=== PATIENT | female | born 1985 | race Caucasian/White ===

== ENCOUNTER 2019-12-05 01:19 | Inpatient (IN) ==
[2019-12-05] MEDS ORDERED: Naloxone 0.4 MG/ML INJ IVP PRN ×2 (04:20→05:43)
[2019-12-05] MEDS ORDERED: Ondansetron ODT 4 MG TAB.RAPDIS SL PRN (04:20)
[2019-12-05] MEDS ORDERED: Perflutren Lipid Microsphere 1.3 ML in 0.9 % Sodium Chloride 8.7 ML IVP PRN (04:28)
[2019-12-05] MEDS ORDERED: Acetaminophen IV 1,000 MG/100 ML INFUS..BTL IVPB ONE (04:28)
[2019-12-05] MEDS ORDERED: 0.9 % Sodium Chloride 1,000 ML IVC ONE (04:30)
[2019-12-05] MEDS ORDERED: 0.9 % Sodium Chloride 1,000 ML ONE (04:31)
[2019-12-05] MEDS ORDERED: *HR* Norepinephrine 4 MG/4 ML VIAL IVC ONE (04:52)
[2019-12-05] MEDS ORDERED: 0.9 % Sodium Chloride 250 ML ONE (04:52)
[2019-12-05] MEDS ORDERED: Potassium Chloride 40 MEQ, Lidocaine 1% 2 ML in 0.9 % Sodium Chloride 500 ML IVPB ONE (05:00)
[2019-12-05] MEDS ORDERED: Norepinephrine 4 MG/254 ML IV.SOLN IVC SCH (05:00)
[2019-12-05 05:10] LABS: Adenovirus Not Detected (Not Detect); Coronavirus 229E Not Detected (Not Detect); Coronavirus HKU1 Not Detected (Not Detect); Coronavirus NL63 Not Detected (Not Detect); Coronavirus OC43 Not Detected (Not Detect)
[2019-12-05 05:11] LABS: Bordetella Pertussis Not Detected (Not Detect); Chlamydophila pneumoniae Not Detected (Not Detect); Human Metapneumovirus Not Detected (Not Detect); Human Rhinovirus/Enterovirus Not Detected (Not Detect); Influenza A Subtype 2009 H1 Not Detected (Not Detect); Influenza B Not Detected (Not Detect); Mycoplasma pneumoniae Not Detected (Not Detect); Parainfluenza Virus 1 Not Detected (Not Detect); Parainfluenza Virus 2 Not Detected (Not Detect); Parainfluenza Virus 3 Not Detected (Not Detect); Parainfluenza Virus 4 Not Detected (Not Detect); Respiratory Syncytial Virus Not Detected (Not Detect)
[2019-12-05] MEDS: Ketorolac 15 MG/ML VIAL IVP PRN ×2 (05:39→12:09)
[2019-12-05 05:56] LABS: Mean Corpuscular Hemoglobin 22.3 pg (28.0-33.3); Mean Corpuscular Volume 71.6 fL (83.0-100.0)
[2019-12-05 05:57] LABS: Hemoglobin 8.7 g/dL (11.5-15.4); Immature Platelets 10.3 % (1.1-6.1); Mean Corpuscular HGB Conc 31.1 g/dL (31.6-35.5); Mean Platelet Volume 11.8 fL (9.4-12.4); Monocytes # 1.1 K/mcL (0.0-1.3); Platelet Count 108 K/mcL (140-400); Red Blood Count 3.91 M/mcL (3.82-4.97); White Blood Count 11.2 K/mcL (4.3-11.1)
[2019-12-05] MEDS: Morphine Sulfate 2 MG/ML SYRINGE IVP PRN ×2 (06:00→11:32)
[2019-12-05] MEDS ORDERED: *HR* Enoxaparin 40 MG/0.4 ML SYRINGE SQ SCH (06:00)
[2019-12-05] MEDS: 0.9 % Sodium Chloride 1,000 ML IVC SCH ×2 (06:00→11:32)
[2019-12-05 06:14] LABS: Alanine Aminotransferase 15 Units/L (7-52); Albumin 2.4 g/dL (3.5-5.7); Albumin/Globulin Ratio 0.8 (1.1-2.2); Alkaline Phosphatase 114 Units/L (34-104); Aspartate Amino Transferase 19 Units/L (13-39); BUN/Creatinine Ratio 24 (6-26); Bilirubin,Total 1.2 mg/dL (0.3-1.0); Blood Urea Nitrogen 17 mg/dL (6-20); Calcium 7.1 mg/dL (8.6-10.3); Carbon Dioxide 26 mEq/L (23-29); Chloride 103 mEq/L (98-107); Glucose 118 mg/dL (70-105); Osmolality,Calculated 281 (280-300); Potassium 2.9 mEq/L (3.5-5.1); Sodium 134 mEq/L (136-145); Total Protein 5.4 g/dL (6.4-8.9); eGFR For African Americans > 60 (> 60); eGFR For Non-African Americans > 60 (> 60)
[2019-12-05] MEDS ORDERED: *HR* LORazepam 2 MG/ML VIAL IVP PRN (06:30)
[2019-12-05 06:35] LABS: Lymphocytes # 0.9 K/mcL (0.6-4.6); Neutrophils # 9.2 K/mcL (1.6-8.9)
[2019-12-05 06:37] LABS: Anisocytosis 1+ (Not Present); Microcytosis Present (Not Present); Platelet Estimate Decreased (Normal)
[2019-12-05] MEDS ORDERED: Piperacillin/Tazobactam 3.375 GM in 0.9 % Sodium Chloride Mini Bag 100 ML IVPB SCH (08:00)
[2019-12-05] MEDS ORDERED: Dexmedetomidine HCl 400 MCG/100 ML MLS IVC SCH (12:00)
[2019-12-05] MEDS ORDERED: *HR* OxyCODONE Immed Rel 5 MG TABLET PO PRN (12:48)
[2019-12-05] MEDS ORDERED: Doxycycline 100 MG CAPSULE PO SCH (13:00)
[2019-12-05 13:09] VITALS: BP 110/64
[2019-12-05] MEDS ORDERED: Doxycycline 100 MG in 0.9 % Sodium Chloride Mini Bag 100 ML IVPB SCH (18:00)
[2019-12-06] MEDS ORDERED: Vancomycin 1,250 MG/262.5 ML IV.SOLN IVPB SCH (01:00)
== END 2019-12-05 15:30 | disposition left against medical advice (07) | DRG 720 ==
LOC: CDU → ICNU 05:15
PROVIDERS: ADMIT Internal Medicine; ATTEND Internal Medicine

== ENCOUNTER 2020-01-04 13:28 | Inpatient (IN) ==
[2020-01-04] MEDS ORDERED: 0.9 % Sodium Chloride 1,000 ML IVC ONE (13:52)
[2020-01-04] MEDS ORDERED: Isovue-370 500 ML BOTTLE IVP ONE (13:53)
[2020-01-04] MEDS ORDERED: Vancomycin 1,500 MG/265 ML IV.SOLN IVPB ONE (13:53)
[2020-01-04] MEDS ORDERED: Piperacillin/Tazobactam 3.375 GM in 0.9 % Sodium Chloride Mini Bag 100 ML IVPB ONE (13:53)
[2020-01-04] MEDS ORDERED: Piperacillin/Tazobactam 3.375 GM in Water for inj. (sterile) 20 ML IVP ONE (14:00)
[2020-01-04 14:35] LABS: Basophils % 0.5 %; Eosinophils # 0.2 K/mcL (0.0-0.6); Eosinophils % 2.6 %; Hematocrit 31.6 % (35.3-44.9); Hemoglobin 9.5 g/dL (11.5-15.4); Immature Granulocytes % 0.4 % (0-4); Lymphocytes # 1.9 K/mcL (0.6-4.6); Lymphocytes % 24.8 %; Mean Corpuscular HGB Conc 30.1 g/dL (31.6-35.5); Mean Corpuscular Hemoglobin 24.1 pg (28.0-33.3); Mean Platelet Volume 9.9 fL (9.4-12.4); Monocytes # 0.7 K/mcL (0.0-1.3); Monocytes % 9.5 %; Neutrophils # 4.8 K/mcL (1.6-8.9); Platelet Count 467 K/mcL (140-400); Red Blood Count 3.94 M/mcL (3.82-4.97); Segmented Neutrophils % 62.2 %; White Blood Count 7.8 K/mcL (4.3-11.1)
[2020-01-04 14:38] LABS: INR 1.1; Prothrombin Time 12.8 Seconds (9.4-12.1)
[2020-01-04 14:40] LABS: Mean Corpuscular Volume 80.2 fL (83.0-100.0)
[2020-01-04 15:05] LABS: Alanine Aminotransferase 20 Units/L (7-52); Albumin 3.5 g/dL (3.5-5.7); Albumin/Globulin Ratio 0.9 (1.1-2.2); Alkaline Phosphatase 163 Units/L (34-104); Aspartate Amino Transferase 27 Units/L (13-39); BUN/Creatinine Ratio 22 (6-26); Bilirubin,Direct 0.1 mg/dL (0.0-0.2); Bilirubin,Indirect 0.3 mg/dL (0.0-1.0); Bilirubin,Total 0.4 mg/dL (0.3-1.0); Blood Urea Nitrogen 13 mg/dL (6-20); Carbon Dioxide 28 mEq/L (23-29); Chloride 100 mEq/L (98-107); Glucose 101 mg/dL (70-105); Osmolality,Calculated 286 (280-300); Potassium 4.2 mEq/L (3.5-5.1); Sodium 138 mEq/L (136-145); Total Protein 7.5 g/dL (6.4-8.9); Troponin I < 0.03 ng/mL (< 0.04); eGFR For African Americans > 60 (> 60); eGFR For Non-African Americans > 60 (> 60)
[2020-01-04 16:30] LABS: Bilirubin,Urine Negative (Negative); Blood,Urine Negative (Negative); Clarity,Urine Clear (Clear); Color,Urine Light-Yellow (Yellow); Glucose,Urine (UA) Normal (Normal); Ketones,Urine Negative (Negative); Leukocyte Esterase,Urine Large (Negative); Mucus,Urine Few per lpf (None-Few); Nitrite,Urine Negative (Negative); PH,Urine 7.5 pH Units (5.0-8.0); Protein,Urine Negative (Neg-Trace); RBC,Urine 0-3 per hpf (0-3); Specific Gravity,Urine > 1.030 (1.010-1.025); Squamous Epithelial Cell,Urine Few per hpf (None-Few); Urobilinogen,Urine Normal (Normal)
[2020-01-04] MEDS ORDERED: *HR* Heparin 5,000 UNIT/ML VIAL IVP PRN ×2 (18:03)
[2020-01-04] MEDS ORDERED: *HR* Heparin 5,000 UNIT/ML VIAL IVP ONE (18:03)
[2020-01-04] MEDS ORDERED: Ondansetron ODT 4 MG TAB.RAPDIS SL PRN (18:03)
[2020-01-04] MEDS ORDERED: Naloxone 0.4 MG/ML INJ IVP PRN (18:03)
[2020-01-04] MEDS: 0.9 % Sodium Chloride 1,000 ML IVC SCH (18:58)
[2020-01-04] MEDS: Heparin 25,000UNIT/250ML 1/2NS 25,000 UNIT/250 ML IV.SOLN IVC SCH (18:58)
[2020-01-04] MEDS ORDERED: Perflutren Lipid Microsphere 1.3 ML in 0.9 % Sodium Chloride 8.7 ML IVP PRN (20:00)
[2020-01-04 21:28] LABS: Amphetamine Screen,Urine Negative ng/mL (Cutoff=1000); Barbiturate Screen,Urine Negative ng/mL (Cutoff=200); Benzodiazepines Screen,Urine Positive ng/mL (Cutoff=200); Cannabinoid Screen,Urine Negative ng/mL (Cutoff = 50); Cocaine Screen,Urine Negative ng/mL (Cutoff= 300); Opiate Screen,Urine Negative ng/mL (Cutoff=300); Phencyclidine Screen,Urine Negative ng/mL (Cutoff=25)
[2020-01-05] MEDS: Piperacillin/Tazobactam 3.375 GM in 0.9 % Sodium Chloride Mini Bag 100 ML IVPB SCH ×4 (00:07→23:24)
[2020-01-05 01:37] LABS: Alanine Aminotransferase 23 Units/L (7-52); Albumin 3.1 g/dL (3.5-5.7); Albumin/Globulin Ratio 0.9 (1.1-2.2); Alkaline Phosphatase 183 Units/L (34-104); Aspartate Amino Transferase 30 Units/L (13-39); BUN/Creatinine Ratio 19 (6-26); Bilirubin,Total 0.4 mg/dL (0.3-1.0); Blood Urea Nitrogen 11 mg/dL (6-20); Calcium 8.3 mg/dL (8.6-10.3); Carbon Dioxide 24 mEq/L (23-29); Chloride 103 mEq/L (98-107); Globulin 3.4 g/dL (2.4-3.5); Glucose 130 mg/dL (70-105); Magnesium 1.6 mg/dL (1.6-2.6); Osmolality,Calculated 283 (280-300); Phosphorous 3.8 mg/dL (2.7-4.5); Potassium 3.6 mEq/L (3.5-5.1); Sodium 136 mEq/L (136-145); Total Protein 6.5 g/dL (6.4-8.9); eGFR For African Americans > 60 (> 60); eGFR For Non-African Americans > 60 (> 60)
[2020-01-05] MEDS: Vancomycin 1,250 MG/262.5 ML IV.SOLN IVPB SCH ×2 (02:39→14:46)
[2020-01-05] MEDS ORDERED: Morphine Sulfate 2 MG/ML SYRINGE IVP ONE (02:54)
[2020-01-05 02:57] LABS: Basophils % 0.5 %; Eosinophils # 0.2 K/mcL (0.0-0.6); Eosinophils % 3.3 %; Hematocrit 26.7 % (35.3-44.9); Immature Granulocytes % 0.5 % (0-4); Lymphocytes # 1.9 K/mcL (0.6-4.6); Lymphocytes % 31.2 %; Mean Corpuscular Hemoglobin 23.9 pg (28.0-33.3); Mean Corpuscular Volume 79.7 fL (83.0-100.0); Mean Platelet Volume 9.7 fL (9.4-12.4); Monocytes # 0.6 K/mcL (0.0-1.3); Monocytes % 10.1 %; Neutrophils # 3.3 K/mcL (1.6-8.9); Platelet Count 380 K/mcL (140-400); Red Blood Count 3.35 M/mcL (3.82-4.97); Red Cell Distribution Width 16.8 % (11.5-14.5); Segmented Neutrophils % 54.4 %
[2020-01-05] MEDS ORDERED: *HR* LORazepam 0.5 MG TABLET PO PRN (06:23)
[2020-01-05] MEDS: Heparin 25,000UNIT/250ML 1/2NS 25,000 UNIT/250 ML IV.SOLN IVC SCH (16:58)
[2020-01-05] MEDS: cloNIDine HCL 0.1 MG TABLET PO PRN (18:12)
[2020-01-05] MEDS: clonazePAM 0.5 MG TABLET PO PRN (20:11)
[2020-01-05] MEDS: 0.9 % Sodium Chloride 1,000 ML IVC SCH (21:58)
[2020-01-06 04:55] LABS: Basophils % 0.3 %; Eosinophils # 0.1 K/mcL (0.0-0.6); Eosinophils % 1.8 %; Hematocrit 27.5 % (35.3-44.9); Hemoglobin 8.2 g/dL (11.5-15.4); Immature Granulocytes % 0.1 % (0-4); Lymphocytes # 1.6 K/mcL (0.6-4.6); Lymphocytes % 23.2 %; Mean Corpuscular HGB Conc 29.8 g/dL (31.6-35.5); Mean Corpuscular Hemoglobin 23.2 pg (28.0-33.3); Mean Corpuscular Volume 77.7 fL (83.0-100.0); Monocytes # 0.5 K/mcL (0.0-1.3); Monocytes % 7.4 %; Neutrophils # 4.6 K/mcL (1.6-8.9); Platelet Count 456 K/mcL (140-400); Red Blood Count 3.54 M/mcL (3.82-4.97); Red Cell Distribution Width 16.2 % (11.5-14.5); Segmented Neutrophils % 67.2 %; White Blood Count 6.8 K/mcL (4.3-11.1)
[2020-01-06 05:08] LABS: BUN/Creatinine Ratio 11 (6-26); Blood Urea Nitrogen 7 mg/dL (6-20); Carbon Dioxide 25 mEq/L (23-29); Chloride 104 mEq/L (98-107); Glucose 116 mg/dL (70-105); Lactate Dehydrogenase 99 Units/L (140-271); Osmolality,Calculated 287 (280-300); Potassium 3.5 mEq/L (3.5-5.1); Sodium 139 mEq/L (136-145); eGFR For African Americans > 60 (> 60); eGFR For Non-African Americans > 60 (> 60)
[2020-01-06 05:46] LABS: Bilirubin,Indirect 0.5 mg/dL (0.0-1.0); Bilirubin,Total 0.5 mg/dL (0.3-1.0)
[2020-01-06] MEDS: clonazePAM 0.5 MG TABLET PO PRN (07:33)
[2020-01-06] MEDS: cloNIDine HCL 0.1 MG TABLET PO PRN (07:46)
[2020-01-06] MEDS: Piperacillin/Tazobactam 3.375 GM in 0.9 % Sodium Chloride Mini Bag 100 ML IVPB SCH (08:04)
[2020-01-06] MEDS ORDERED: *HR* LORazepam 0.5 MG TABLET PO ONE (11:39)
[2020-01-06] MEDS ORDERED: hydrOXYzine pamoate 25 MG CAPSULE PO PRN ×2 (13:25→16:08)
[2020-01-06] MEDS ORDERED: Lidocaine -MPF 2% 2 ML VIAL ONE (14:47)
[2020-01-06] MEDS ORDERED: *HR* FentaNYL (PF) 100 MCG/2 ML VIAL ONE ×2 (14:47→15:29)
[2020-01-06] MEDS ORDERED: *HR* Propofol 200 MG/20 ML VIAL IVP ONE ×2 (14:47→15:14)
[2020-01-06] MEDS ORDERED: *HR* Midazolam HCl 2 MG/2 ML VIAL ONE (14:47)
[2020-01-06] MEDS ORDERED: *HR* Rocuronium Bromide 50 MG/5 ML VIAL ONE (14:48)
[2020-01-06] MEDS ORDERED: *HR* Succinylcholine 200 MG/10 ML VIAL IVP ONE (14:49)
[2020-01-06] MEDS ORDERED: Ondansetron 4 MG/2 ML VIAL IVP PRN ×2 (15:02→16:17)
[2020-01-06] MEDS ORDERED: *HR* Meperidine 25 MG/ML SYRINGE IVP PRN (15:02)
[2020-01-06] MEDS ORDERED: *HR* OxyCODONE Immed Rel 5 MG TABLET PO PRN (15:02)
[2020-01-06] MEDS ORDERED: Dexamethasone 4 MG/ML VIAL ONE (15:40)
[2020-01-06] MEDS ORDERED: Ondansetron 4 MG/2 ML VIAL ONE (15:40)
[2020-01-06] MEDS ORDERED: *HR* HYDROMORPHONE 2 MG/ML VIAL ONE (15:45)
[2020-01-06] MEDS: *HR* HYDROmorphone PF 0.5 MG/0.5 ML SYRINGE IVP PRN ×2 (16:00→16:09)
[2020-01-06] MEDS ORDERED: Naloxone 0.4 MG/ML INJ IVP PRN (16:08)
[2020-01-06] MEDS ORDERED: cloNIDine HCL 0.1 MG TABLET PO PRN (16:08)
[2020-01-06] MEDS ORDERED: Ondansetron ODT 4 MG TAB.RAPDIS SL PRN (16:08)
[2020-01-06] MEDS ORDERED: clonazePAM 0.5 MG TABLET PO PRN (16:08)
[2020-01-06] MEDS ORDERED: Perflutren Lipid Microsphere 1.3 ML in 0.9 % Sodium Chloride 8.7 ML IVP PRN (16:08)
[2020-01-06] MEDS ORDERED: *HR* HYDROcodone/Acet 5/325 mg TABLET PO PRN (16:08)
[2020-01-06] MEDS: *HR* Promethazine 25 MG/ML VIAL IVP PRN ×2 (16:10→16:15)
[2020-01-06] MEDS ORDERED: *HR* Promethazine 25 MG/ML VIAL IVP PRN (16:17)
[2020-01-06] MEDS ORDERED: *HR* HYDROmorphone (PF) 1 MG/ML SYRINGE ONE (16:36)
[2020-01-06] MEDS: *HR* HYDROmorphone 2 MG/ML SYRINGE IVP PRN ×4 (16:37→16:55)
[2020-01-06] MEDS: *HR* Meperidine 25 MG/ML SYRINGE IVP PRN ×2 (16:44→16:59)
[2020-01-06] MEDS ORDERED: Acetaminophen IV 1,000 MG/100 ML BAG IVPB ONE (17:09)
[2020-01-06] MEDS ORDERED: *HR* HYDROmorphone (PF) 1 MG/ML SYRINGE IVP PRN (17:09)
[2020-01-06] MEDS: Ketorolac 15 MG/ML VIAL IVP SCH (17:46)
[2020-01-06] MEDS: Sennosides/Docusate Sodium TABLET PO SCH (21:19)
[2020-01-06] MEDS: Gabapentin 300 MG CAPSULE PO SCH (21:19)
[2020-01-07] MEDS: Ketorolac 15 MG/ML VIAL IVP SCH ×5 (00:04→23:59)
[2020-01-07 04:07] LABS: Hematocrit 27.1 % (35.3-44.9); Hemoglobin 8.2 g/dL (11.5-15.4); Immature Granulocytes % 0.3 % (0-4); Lymphocytes # 0.7 K/mcL (0.6-4.6); Lymphocytes % 10.6 %; Mean Corpuscular HGB Conc 30.3 g/dL (31.6-35.5); Mean Corpuscular Hemoglobin 23.6 pg (28.0-33.3); Mean Corpuscular Volume 78.1 fL (83.0-100.0); Mean Platelet Volume 9.9 fL (9.4-12.4); Monocytes # 0.4 K/mcL (0.0-1.3); Monocytes % 5.3 %; Neutrophils # 5.7 K/mcL (1.6-8.9); Platelet Count 484 K/mcL (140-400); Red Blood Count 3.47 M/mcL (3.82-4.97); Segmented Neutrophils % 83.8 %; White Blood Count 6.8 K/mcL (4.3-11.1)
[2020-01-07 04:16] LABS: BUN/Creatinine Ratio 18 (6-26); Blood Urea Nitrogen 12 mg/dL (6-20); Calcium 9.1 mg/dL (8.6-10.3); Carbon Dioxide 24 mEq/L (23-29); Chloride 106 mEq/L (98-107); Glucose 208 mg/dL (70-105); Osmolality,Calculated 296 (280-300); Potassium 3.5 mEq/L (3.5-5.1); Sodium 140 mEq/L (136-145); eGFR For African Americans > 60 (> 60); eGFR For Non-African Americans > 60 (> 60)
[2020-01-07] MEDS: Gabapentin 300 MG CAPSULE PO SCH ×3 (08:22→21:31)
[2020-01-07] MEDS: Sennosides/Docusate Sodium TABLET PO SCH ×2 (08:22→22:47)
[2020-01-07 10:48] LABS: RBC,Pleural Fluid 134000 RBC/mcL
[2020-01-07 11:00] LABS: Appearance of Pleural Fl Bloody (Clear)
[2020-01-07 11:01] LABS: Total Protein,Pleural Fluid 5.1 g/dL
[2020-01-07] MEDS: Vancomycin 1,250 MG/262.5 ML IV.SOLN IVPB SCH (17:46)
[2020-01-07] MEDS: *HR* HYDROcodone/Acet 7.5/325 mg TABLET PO PRN (21:45)
[2020-01-08] MEDS: Vancomycin 1,250 MG/262.5 ML IV.SOLN IVPB SCH ×3 (02:14→18:26)
[2020-01-08 02:53] LABS: Basophils % 0.3 %; Eosinophils # 0.1 K/mcL (0.0-0.6); Eosinophils % 0.5 %; Hematocrit 26.9 % (35.3-44.9); Hemoglobin 8.2 g/dL (11.5-15.4); Immature Granulocytes % 0.3 % (0-4); Lymphocytes # 1.8 K/mcL (0.6-4.6); Lymphocytes % 19.8 %; Mean Corpuscular HGB Conc 30.5 g/dL (31.6-35.5); Mean Corpuscular Hemoglobin 24.1 pg (28.0-33.3); Mean Corpuscular Volume 79.1 fL (83.0-100.0); Mean Platelet Volume 9.6 fL (9.4-12.4); Monocytes # 0.7 K/mcL (0.0-1.3); Monocytes % 7.2 %; Neutrophils # 6.7 K/mcL (1.6-8.9); Platelet Count 470 K/mcL (140-400); Red Cell Distribution Width 16.1 % (11.5-14.5); Segmented Neutrophils % 71.9 %; White Blood Count 9.3 K/mcL (4.3-11.1)
[2020-01-08 03:11] LABS: BUN/Creatinine Ratio 23 (6-26); Blood Urea Nitrogen 14 mg/dL (6-20); Calcium 8.8 mg/dL (8.6-10.3); Carbon Dioxide 28 mEq/L (23-29); Chloride 107 mEq/L (98-107); Glucose 120 mg/dL (70-105); Osmolality,Calculated 296 (280-300); Potassium 3.1 mEq/L (3.5-5.1); Sodium 142 mEq/L (136-145); eGFR For African Americans > 60 (> 60); eGFR For Non-African Americans > 60 (> 60)
[2020-01-08] MEDS: Ketorolac 15 MG/ML VIAL IVP SCH ×3 (05:48→17:19)
[2020-01-08] MEDS: Sennosides/Docusate Sodium TABLET PO SCH ×2 (08:35→20:53)
[2020-01-08] MEDS: Gabapentin 300 MG CAPSULE PO SCH ×3 (08:35→20:53)
[2020-01-08] MEDS: *HR* HYDROcodone/Acet 7.5/325 mg TABLET PO PRN ×3 (08:35→22:52)
[2020-01-08] MEDS ORDERED: Lidocaine -MPF 1% 5 ML AMPUL INFILT ONE (10:25)
[2020-01-08] MEDS: Vancomycin 1,500 MG/265 ML IV.SOLN IVPB SCH (18:46)
[2020-01-08] MEDS: Apixaban 5 MG TABLET PO SCH (20:52)
[2020-01-09] MEDS: Ketorolac 15 MG/ML VIAL IVP SCH ×2 (00:42→05:20)
[2020-01-09] MEDS: Vancomycin 1,500 MG/265 ML IV.SOLN IVPB SCH (02:53)
[2020-01-09 05:02] LABS: Basophils % 0.4 %; Eosinophils # 0.2 K/mcL (0.0-0.6); Eosinophils % 2.5 %; Hematocrit 27.2 % (35.3-44.9); Hemoglobin 8.2 g/dL (11.5-15.4); Immature Granulocytes % 0.5 % (0-4); Lymphocytes # 1.8 K/mcL (0.6-4.6); Lymphocytes % 23.5 %; Mean Corpuscular HGB Conc 30.1 g/dL (31.6-35.5); Mean Corpuscular Hemoglobin 23.8 pg (28.0-33.3); Mean Corpuscular Volume 79.1 fL (83.0-100.0); Mean Platelet Volume 9.9 fL (9.4-12.4); Monocytes # 0.6 K/mcL (0.0-1.3); Monocytes % 8.1 %; Platelet Count 473 K/mcL (140-400); Red Blood Count 3.44 M/mcL (3.82-4.97); Red Cell Distribution Width 16.4 % (11.5-14.5); White Blood Count 7.6 K/mcL (4.3-11.1)
[2020-01-09 05:15] LABS: BUN/Creatinine Ratio 33 (6-26); Blood Urea Nitrogen 15 mg/dL (6-20); Calcium 8.5 mg/dL (8.6-10.3); Carbon Dioxide 26 mEq/L (23-29); Chloride 108 mEq/L (98-107); Glucose 113 mg/dL (70-105); Osmolality,Calculated 292 (280-300); Potassium 3.6 mEq/L (3.5-5.1); Sodium 140 mEq/L (136-145); eGFR For African Americans > 60 (> 60); eGFR For Non-African Americans > 60 (> 60)
[2020-01-09 07:21] VITALS: BP 164/93
[2020-01-09] MEDS ORDERED: Albuterol 2.5 MG/3 ML NEBULIZER IH PRN (07:43)
[2020-01-09] MEDS: *HR* HYDROcodone/Acet 7.5/325 mg TABLET PO PRN (10:05)
[2020-01-09] MEDS: Sennosides/Docusate Sodium TABLET PO SCH (10:05)
[2020-01-09] MEDS: Apixaban 5 MG TABLET PO SCH (10:05)
[2020-01-09] MEDS: Gabapentin 300 MG CAPSULE PO SCH (10:05)
== END 2020-01-09 11:00 | disposition left against medical advice (07) | DRG 710 ==
LOC: 2ANU 13:28 → EMEROOARM 13:28 → 2ANU 19:35 → SUATTDRO 01-05 13:16
PROVIDERS: ADMIT Internal Medicine; ATTEND Internal Medicine